=== PATIENT | male | born 1960 | race Hispanic/Latino ===

== ENCOUNTER 2020-04-12 11:03 | Emergency (ER) | payer OTHER, SELFPAY ==
--- NOTE | 2020-04-12 12:25 | RAD REPORT ---
EXAM DESCRIPTION: RAD - Knee Left 3 View - 04/12/2020 12:14 pm CLINICAL HISTORY: Left knee pain FINDINGS: No fracture or dislocation is seen. Mild narrowing involves medial and lateral compartments. Moderate narrowing involves the patella femo ral compartment with osteophytes. Chondrocalcinosis is present. Moderate joint effusion is suspected. . A small exostosis extends off of the proximal fibula. The bones are osteoporotic
--- NOTE | 2020-04-12 12:37 | EDPHYS ---
Physician Documentation [facility] Name: Luis Banda Age: 59 yrs Sex: Male : 1960 Arrival Date: 04/12/2020 Time: 11:05 Bed 16 Private MD: ED Physician Neeraj Brown HPI: 04/12 11:49 This 59 yrs old Male presents to ER via Wheelchair with complaints of Knee kb Pain. 11:49 The patient presents with decreased range of motion, an injury, pain, swelling, kb tenderness. The complaints affect the left knee. Modifying factors: The symptoms are alleviated by nothing. the symptoms are aggravated by weight bearing. The patient has not experienced similar symptoms in the past. The patient has not recently seen a physician. 11:49 Context: The problem was sustained at home, resulted from the patient falling, while kb walking, the patient can partially bear weight, uses crutches. Onset: The symptoms/episode began/occurred 3 day(s) ago. Associated signs and symptoms: Pertinent positives: swelling, Pertinent negatives calf tenderness, fever, nausea, numbness, rash, tingling, vomiting, warmth, weakness. Treatment prior to arrival includes: no previous treatment. Severity of symptoms: At their worst the symptoms were moderate, in the emergency department the symptoms are unchanged. Pt reports he fell onto left knee 3 days ago. Unable to bear weight since then. Historical: - Allergies: 11:15 No Known Allergies; aa5 - Home Meds: 11:15 None [Active]; aa5 - PMHx: 11:15 None; aa5 - PSHx: 11:15 Left foot; aa5 - Immunization history:: Adult Immunizations unknown. - Social history:: Smoking status: Patient reports the use of cigarette tobacco products, smokes one-half pack cigarettes per day. ROS: 11:47 Constitutional: Negative for fever, chills, and weight loss, Cardiovascular: Negative kb for chest pain, palpitations, and edema, Respiratory: Negative for shortness of breath, cough, wheezing, and pleuritic chest pain, Abdomen/GI: Negative for abdominal pain, nausea, vomiting, diarrhea, and constipation, Skin: Negative for injury, rash, and discoloration, Neuro: Negative for headache, weakness, numbness, tingling, and seizure. 11:47 MS/extremity: Positive for pain, swelling, tenderness, of the left knee. Exam: 11:47 Constitutional: This is a well developed, well nourished patient who is awake, alert, kb and in no acute distress. Head/Face: Normocephalic, atraumatic. Chest/axilla: Normal chest wall appearance and motion. Nontender with no deformity. No lesions are appreciated. Cardiovascular: Regular rate and rhythm with a normal S1 and S2. No gallops, murmurs, or rubs. Normal PMI, no JVD. No pulse deficits. Respiratory: Lungs have equal breath sounds bilaterally, clear to auscultation and percussion. No rales, rhonchi or wheezes noted. No increased work of breathing, no retractions or nasal flaring. Abdomen/GI: Soft, non-tender, with normal bowel sounds. No distension or tympany. No guarding or rebound. No evidence of tenderness throughout. Skin: Warm, dry with normal turgor. Normal color with no rashes, no lesions, and no evidence of cellulitis. Neuro: Awake and alert, GCS 15, oriented to person, place, time, and situation. Cranial nerves II-XII grossly intact. Motor strength 5/5 in all extremities. Sensory grossly intact. Cerebellar exam normal. Normal gait. 11:47 Musculoskeletal/extremity: Extremities: grossly normal except: noted in the left knee: decreased ROM, pain, swelling, tenderness, ROM: limited active range of motion due to pain, in the left knee, Circulation is intact in all extremities. Sensation intact. Weight bearing: can bear weight with assistance only, uses crutches. Vital Signs: 11:14 BP 144 / 84; Pulse 72; Resp 16 S; Temp 98.9(O); Pulse Ox 99% on R/A; Weight 72.57 kg aa5 (R); Height 5 ft. 5 in. (165.10 cm) (R); Pain 0/10; 12:14 BP 129 / 99; Pulse 61; Resp 16 S; Pulse Ox 100% on R/A; ca1 12:52 BP 131 / 71; Pulse 62; Resp 16 S; Pulse Ox 100% on R/A; ca1 11:14 Body Mass Index 26.63 (72.57 kg, 165.10 cm) aa5 MDM: 11:19 Patient medically screened. kb 11:47 Data reviewed: vital signs, nurses notes. Data interpreted: Pulse oximetry: on room air kb is 99 %. Interpretation: normal. 12:36 Counseling: I had a detailed discussion with the patient and/or guardian regarding: the kb historical points, exam findings, and any diagnostic results supporting the discharge/admit diagnosis, radiology results, the need for outpatient follow up, a orthopedic surgeon, to return to the emergency department if symptoms worsen or persist or if there are any questions or concerns that arise at home. 04/12 11:24 Order name: Knee Left 3 View XRAY; Complete Time: 12:32 kb Administered Medications: No medications were administered Disposition: 04/12/20 12:36 Discharged to Home. Impression: Effusion, left knee, Pain in left knee. - Condition is Stable. - Discharge Instructions: Knee Effusion, [id number], Knee Pain, [id number]. - Prescriptions for Ibuprofen 800 mg Oral Tablet - take 1 tablet by ORAL route every 8 hours As needed take with food; 30 tablet. - Medication Reconciliation Form, Thank You Letter, Antibiotic Education, Prescription Opioid Use form. - Follow up: Emergency Department; When: As needed; Reason: Worsening of condition. Follow up: Private Physician; When: 2 - 3 days; Reason: Recheck today's complaints, Continuance of care, Re-evaluation by your physician. Addendum: 04/13/2020 14:38 Co-signature as Attending Physician, Neeraj Brown MD I agree with the assessment and k dr plan of care. Signatures: Dispatcher [employer] EDHI Odilia De Leon, EQUIPMENT VALIDATION SPECIALIST-C EQUIPMENT VALIDATION SPECIALIST-Ckb Neeraj Brown MD MD [facility] Sejal Beard, RN RN aa5 Doretha Hollingsworth RN RN ca1 Corrections: (The following items were deleted from the chart) 04/12 12:53 12:36 04/12/2020 12:36 Discharged to Home. Impression: Effusion, left knee; Pain in ca1 left knee. Condition is Stable. Forms are Medication Reconciliation Form, Thank You Letter, Antibiotic Education, Prescription Opioid Use. Follow up: Emergency Department; When: As needed; Reason: Worsening of condition. Follow up: Private Physician; When: 2 - 3 days; Reason: Recheck today's complaints, Continuance of care, Re-evaluation by your physician. kb
--- NOTE | 2020-04-12 12:37 | ER ---
Nurse's Notes [facility] Name: Luis Banda Age: 59 yrs Sex: Male : 1960 Arrival Date: 04/12/2020 Time: 11:05 Bed 16 Private MD: Diagnosis: Effusion, left knee;Pain in left knee Presentation: 04/12 11:14 Chief complaint: Patient states: left knee pain after falling on Thursday. Pt reports he aa5 is unable to bear weight. 11:14 Method Of Arrival: Wheelchair aa5 11:14 Coronavirus screen: Client denies travel out of the [place] in the last 14 days. At this aa5 time, the client does not indicate any symptoms associated with coronavirus-19. Ebola Screen: Patient negative for fever greater than or equal to 101.5 degrees Fahrenheit, and additional compatible Ebola Virus Disease symptoms. Initial Sepsis Screen: Does the patient meet any 2 criteria? No. Patient's initial sepsis screen is negative. Does the patient have a suspected source of infection? No. Patient's initial sepsis screen is negative. Risk Assessment: Do you want to hurt yourself or someone else? Patient reports no desire to harm self or others. Onset of symptoms was March 2020. 11:14 Acuity: SUBHA 4 aa5 Historical: - Allergies: 11:15 No Known Allergies; aa5 - Home Meds: 11:15 None [Active]; aa5 - PMHx: 11:15 None; aa5 - PSHx: 11:15 Left foot; aa5 - Immunization history:: Adult Immunizations unknown. - Social history:: Smoking status: Patient reports the use of cigarette tobacco products, smokes one-half pack cigarettes per day. Screenin:31 Abuse screen: Denies threats or abuse. Denies injuries from another. Nutritional ca1 screening: No deficits noted. Tuberculosis screening: No symptoms or risk factors identified. Fall Risk None identified. Assessment: 11:31 Reassessment:. General: Appears in no apparent distress. comfortable, Behavior is calm, ca1 cooperative, appropriate for age. Pain: Complains of pain in left knee Pain currently is 8 out of 10 on a pain scale. Pain began 2-3 days ago. Aggravated by weight bearing. Neuro: Level of Consciousness is awake, alert, obeys commands, Oriented to person, place, time, situation. Derm: Skin is intact, is healthy with good turgor, Skin is pink, warm \T\ dry. Musculoskeletal: Circulation, motion, and sensation intact. Capillary refill < 3 seconds. 12:14 Reassessment: Patient appears in no apparent distress at this time. Patient and/or ca1 family updated on plan of care and expected duration. Pain level reassessed. Patient is alert, oriented x 3, equal unlabored respirations, skin warm/dry/pink. 12:52 Reassessment: Patient appears in no apparent distress at this time. Patient is alert, ca1 oriented x 3, equal unlabored respirations, skin warm/dry/pink. Vital Signs: 11:14 BP 144 / 84; Pulse 72; Resp 16 S; Temp 98.9(O); Pulse Ox 99% on R/A; Weight 72.57 kg aa5 (R); Height 5 ft. 5 in. (165.10 cm) (R); Pain 0/10; 12:14 BP 129 / 99; Pulse 61; Resp 16 S; Pulse Ox 100% on R/A; ca1 12:52 BP 131 / 71; Pulse 62; Resp 16 S; Pulse Ox 100% on R/A; ca1 11:14 Body Mass Index 26.63 (72.57 kg, 165.10 cm) aa5 ED Course: 11:05 Patient arrived in ED. ag5 11:14 Arm band placed on. aa5 11:19 Odilia De Leon FNP-C is [facility]. kb 11:19 Neeraj Brown MD is Attending Physician. kb 11:30 Doretha Hollingsworth, JAZMINE is Primary Nurse. ca1 11:31 Patient has correct armband on for positive identification. Bed in low position. Call ca1 light in reach. Side rails up X 1. Pulse ox on. NIBP on. 11:31 No provider procedures requiring assistance completed. Patient did not have IV access ca1 during this emergency room visit. 11:34 Triage completed. aa5 12:15 Knee Left 3 View XRAY In Process Unspecified. EDMS Administered Medications: No medications were administered Outcome: 12:36 Discharge ordered by . kb 12:53 Discharged to home via wheelchair, with significant other. ca1 12:53 Condition: stable 12:53 Discharge instructions given to patient, Instructed on discharge instructions, follow up and referral plans. medication usage, Demonstrated understanding of instructions, follow-up care, medications, Prescriptions given X 1. 12:53 Patient left the ED. ca1 Signatures: Dispatcher [employer] Odilia Carvalho, REY EASON-Sejal Pichardo, RN RN aa5 Doretha Hollingsworth RN RN ca1 Lesley Lee ag5
[2020-04-12 13:11] VITALS: TEMP 98.9
[2020-04-12 13:20] VITALS: O2SAT 100
[2020-04-12 13:21] VITALS: BP 131/71
== END 2020-04-12 12:53 | disposition home or self-care (01) ==
LOC: ER 11:03
DX: M25.462 Effusion, left knee (principal); W19.XXXA Unspecified fall, initial encounter; Y93.01 Activity, walking, marching and hiking; Y92.009 Unspecified place in unspecified non-institutional (private) residence as the place of occurrence of the external cause; F17.210 Nicotine dependence, cigarettes, uncomplicated
CPT/HCPCS: 99283

== ENCOUNTER 2024-05-23 11:30 | Inpatient (IN) | payer OTHER, SELFPAY ==
--- OUTSIDE RECORDS SUMMARY | 2024-05-23 11:33 | XMS REPORT | Continuity of Care Document ---
Author Name Unknown Address [address] [facility] [address] [place] [address] [facility] [address] [facility] [place] [address] Care Team Providers Care Title Assistant Name Role Phone Unavailable Unavailable Unavailable Encounters Start Date/Time End Date/Time Encounter Type Admission Type Attending Clinicians Care Facility Care Department Encounter ID Source 2024-05-23 10:24:44 2024-05-23 10:24:44 Outpatient [facility] [id number] Rosas Yeboah 2023-08-24 08:02:12 2023-08-24 08:02:12 Outpatient [facility] [id number] Rosas Yeboah Results Test Description Test Time Test Comments Results Result Co mments Source
[2024-05-23 12:29] LABS: Absolute Basophils 0.1 K/uL (0-0.5); Absolute Eosinophils 0.3 K/uL (0-0.5); Absolute Lymphocytes (CBC) 2.9 K/uL (0.7-4.9); Absolute Monocytes 0.4 K/uL (0.1-1.3); Absolute Neutrophil 5.5 K/uL (1.8-8.0); Basophils % 1.1 % (0-1.3); Eosinophils % 3.7 % (0-4.4); Hematocrit 39.9 % (39.6-49.0); Hemoglobin 13.4 g/dL (13.6-17.9); MCH 30.7 pg (27.0-35.0); MCHC 33.6 g/dL (32.0-36.0); MCV 91.3 fL (80-100); MPV 9.3 fL (7.6-11.3); Monocytes % 4.7 % (3.3-12.3); Neutrophils % 59.5 % (41.7-73.7); Platelets 193 thou/uL (152-406); RBC Red Blood Cell Count 4.37 M/uL (4.33-5.43); Red Cell Distribution Width 14.1 % (12.1-15.2)
--- NOTE | 2024-05-23 14:08 | RAD REPORT ---
EXAM: CT Head Brain Wo Cont HISTORY: L sided numbness COMPARISON: None TECHNIQUE: Multiple contiguous axial images were obtained for a CT of the brain without contrast. Sag ittal and coronal reformats were performed. One or more of the following dose reduction techniques were used: Automated exposure control, adjus tment of the mA and kV according to patient size, and iterative reconstruction. Unless otherwise specified, incidental findings do not require dedicated imaging follow-up. FINDINGS: No evidence of hydrocephalus, intracranial hemorrhage, or extra-axial fluid collection. Encephalomalacia along the left frontal parasagittal region, suggesting sequelae of remote trauma or ischemia. Small focus of encephalomalacia along the left inferior cerebellar hemispheres as well. The brain is otherwise normal in morphology. The calvarium is intact. The visualized paranasal sinuses and mastoid air cells are essentially clear . IMPRESSION: No evidence of acute intracranial abnormality. Left frontal parasagittal and left inferior cerebellar regions of encephalomalacia, may relate to seq uelae of remote ischemia.
--- NOTE | 2024-05-23 14:12 | RAD REPORT ---
EXAMINATION: CT Neck Angio CLINICAL INDICATION: Male, 63 years old. [facility] MA[facility] L sided numbness Bed Name: [id number] TECHNIQUE: Axial CT images were obtained from the aortic arch to the skull base after intravenous con trast utilizing angiographic protocol. Multiplanar reformats, as well as 3D post-processing (maximum intensity projection images, volume rendered images and/or shaded surface rendered images) w ere generated and reviewed. One or more of the following dose reduction techniques were used: Automated exposure control, adjustment of the mA and/or kV according to patient size, and/or iterativ e reconstruction. Unless otherwise specified, incidental findings do not require dedicated imaging follow-up. COMPARISON: No prior exam. FINDINGS: AORTA: The imaged aortic arch is normal. Three-vessel arch with fusiform dilation of the proximal lef t subclavian artery measuring 1.9 cm in caliber. CCA: No artifact The common carotid arteries are patent and normal in caliber. ICA/ECA: Bilateral internal and external carotid arteries are patent. Mild predominantly noncalcified right more than left proximal ICA plaque with some luminal irregularity, without significant stenosis. VERTEBRAL: The right cervical vertebral artery is patent to the skull base. Left vertebral artery is not opacified starting at its origin. Sluggish opacification of the distal V3 segment, which may be related to retrograde flow. SOFT TISSUE: No significant neck soft tissue abnormalities. The visualized lung apices are clear. 3D images confirm these findings. 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 Mild atherosclerotic changes otherwise. The carotid and right vertebral cervical arteries are patent. NASCET criteria used to quantify ICA stenosis, with the following grading scheme: Mild 0-49% stenosis Moderate 50-69% stenosis Severe 70-99% stenosis Reference: [place] Symptomatic Carotid Endarterectomy Trial Collaborators; Conner CASTILLOM, Tameka DW, Gene RB, et al. Beneficial effect of carotid endarterectomy in symptomatic patients with high-grade carotid stenosis. N Engl J Med. 1990 15;325(7):445-53.
--- NOTE | 2024-05-23 14:18 | RAD REPORT ---
EXAMINATION: CTA HEAD CLINICAL INDICATION: Male, 63 years old. NUMBNESS TECHNIQUE: Axial CT images were obtained through the head after intravenous contrast utilizing angiog raphic protocol with 3D post-processing (maximum intensity projection images, volume rendered images and/or shaded surface rendered images). One or more of the following dose reduction technique s were used: Automated exposure control, adjustment of the mA and/or kV according to patient size, and/or iterative reconstruction. Unless otherwise specified, incidental findings do not require dedic ated imaging follow-up. COMPARISON: Noncontrast head CT of the same day FINDINGS: ICA: The petrous, cavernous, and supraclinoid segments of the bilateral internal carotid arteries are normal. ABDELRAHMAN: Anterior cerebral arteries are normal bilaterally. The anterior communicating artery is patent. MCA: Middle cerebral arteries are patent bilaterally, with multifocal mild narrowing along the right more than left MCA branches. OPERATING ROOM TECHNOLOGIST: Posterior cerebral arteries are normal bilaterally. Vertebrobasilar: The vertebral arteries are patent, with sluggish flow along the intradural left vert ebral artery which is diminutive in caliber. The basilar artery is patent with multifocal mild narrowing. The bilateral posterior communicating arteries are however patent. 3D images confirm these findings. IMPRESSION: Multifocal mild narrowing along the basilar artery and right more than left MCA branches as above. No evidence of hemodynamically significant stenosis or large vessel occlusion.
--- NOTE | 2024-05-23 14:49 | ER ---
Nurse's Notes [facility] Name: Luis Banda Age: 63 yrs Sex: Male : 1960 Arrival Date: 05/23/2024 Time: 11:30 Bed 25 Private MD: Diagnosis: Subacute Stroke Presentation: 05/23 11:51 Chief complaint: Patient states: left sided numbness X 1 month, was sent by [facility] for evaluation , was previously seen in [place] for possible stroke , was prescribed plavix and aspirin , has persistent left hand numbness. Coronavirus screen: At this time, the client does not indicate any symptoms associated with coronavirus-19. Ebola Screen: No symptoms or risks identified at this time. Initial Sepsis Screen: Does the patient meet any 2 criteria? No. Patient's initial sepsis screen is negative. Does the patient have a suspected source of infection? No. Patient's initial sepsis screen is negative. Risk Assessment: Do you want to hurt yourself or someone else? Patient reports no desire to harm self or others. 11:51 Acuity: SUBHA 3 iw 11:51 Method Of Arrival: Ambulatory iw 11:54 Onset of symptoms was April 23, 2024. iw Historical: - Allergies: 11:55 No Known Allergies; iw - PMHx: 11:55 Cerebrovascular accident; iw - PSHx: 11:55 None; iw - Immunization history:: Adult Immunizations unknown. - Infectious Disease History:: Denies. - Social history:: Smoking status: Patient denies any tobacco usage or history of. Screenin:20 [facility] ED Fall Risk Assessment (Adult) History of falling in the last 3 months, me1 including since admission No falls in past 3 months (0 pts) Confusion or Disorientation No (0 pts) Intoxicated or Sedated No (0 pts) Impaired Gait No (0 pts) Mobility Assist Device Used No (0 pt) Altered Elimination No (0 pt) Score/Fall Risk Level 0 - 2 = Low Risk Maintained a safe environment, Provided non-skid footwear, Hourly rounding (assess needs \T\ fall precautionary measures) done. Abuse screen: Denies threats or abuse. Nutritional screening: No deficits noted. Tuberculosis screening: No symptoms or risk factors identified. 13:00 Lucien Swallow Protocol Exclusion Criteria: Unable to remain alert for testing: No NPO me1 for medical/surgical reason by provider order No Head-of-bed restricted <30 degrees Brief Cognitive Screen What is your name? Normal, Where are you right now? Normal, What year is it? Normal. Oral Mechanism Examination Facial Symmetry: Normal, Motion: Normal, Lip Closure: Normal, 3 oz Water Swallow Challenge: Pt able to drink all water without stopping, coughing, choking or throat clearing: Yes Result: PASS MD Notified: Cecil Peck MD. Assessment: 12:20 General: Appears in no apparent distress. comfortable, well groomed, well developed, me1 well nourished, Behavior is calm, cooperative, appropriate for age, Reports left sided numbness X 1 month, was sent by [facility] for evaluation , was previously seen in [place] for possible stroke , was prescribed plavix and aspirin , has persistent left hand numbness. Pain: Denies pain. Neuro: Level of Consciousness is awake, alert, obeys commands, Oriented to person, place, time, situation, Appropriate for age. Neuro: Reports numbness in left hand. Cardiovascular: Patient's skin is warm and dry. Respiratory: Airway is patent Respiratory effort is even, unlabored, Respiratory pattern is regular, symmetrical. GI: No signs and/or symptoms were reported involving the gastrointestinal system. : No signs and/or symptoms were reported regarding the genitourinary system. EENT: No signs and/or symptoms were reported regarding the EENT system. Derm: Skin is intact, is healthy with good turgor, Skin is pink, warm \T\ dry. Musculoskeletal: Range of motion: intact in all extremities, Reports numbness in left hand. 05/24 13:09 Reassessment: Report faxed to 4th floor, receipt confirmed with [employer]. me1 Vital Signs: 05/23 11:51 BP 125 / 72; Pulse 57; Resp 16; Temp 97.2; Pulse Ox 99% on R/A; iw 13:00 BP 127 / 77; Pulse 51; Resp 17; Pulse Ox 97% on R/A; me1 14:00 BP 119 / 82; Pulse 53; Resp 18; Pulse Ox 98% on R/A; me1 15:00 BP 128 / 84; Pulse 53; Resp 19; Pulse Ox 99% ; me1 16:00 BP 134 / 88; Pulse 58; Resp 20; Pulse Ox 99% ; me1 17:00 BP 136 / 66; Pulse 52; Resp 19; Temp 98.2; Pulse Ox 98% ; me1 18:00 BP 126 / 69; Pulse 51; Resp 18; Pulse Ox 99% ; me1 NIH Stroke Scale Scores: 13:00 NIHSS Score: 0 me1 ED Course: 11:33 Patient arrived in ED. mg5 11:38 David Mcmanus DO is Attending Physician. ms3 11:47 Attending Physician role handed off by David Mcmanus DO ec2 11:47 Cecil Peck MD is Attending Physician. ec2 11:53 Triage completed. iw 12:20 No provider procedures requiring assistance completed. me1 12:20 Patient has correct armband on for positive identification. Bed in low position. Call me1 light in reach. Side rails up X2. Provided Education on: POC. Verbalized understanding.. Client placed on continuous cardiac and pulse oximetry monitoring. NIBP monitoring applied. manager monitoring on. Pulse ox on. NIBP on. 12:20 Arm band placed on Patient placed in an exam room. me1 12:22 Initial lab(s) drawn, by me, sent to lab. Inserted saline lock: 22 gauge in right iw forearm, using aseptic technique. Blood collected. Flushed with 10 mL NS. 12:37 Marcelle Hathaway, RN is Primary Nurse. me1 12:53 EKG done, by ED staff, reviewed by Cecil Peck MD. me1 13:11 CT Head Brain wo Cont In Process Unspecified. EDMS 13:12 CT Neck Angio In Process Unspecified. EDMS 13:12 Head angio In Process Unspecified. EDMS 14:48 Mayur Dawson is Hospitalizing Provider. ec2 15:27 Von Kauffman is Hospitalizing Provider. ec2 15:32 Mayur Dawson is Hospitalizing Provider. ec2 19:09 Patient admitted, IV remains in place. me1 19:28 Notified the Hospitalist of a critical lab result(s), troponin 177.[address] Pappas. me1 Administered Medications: No medications were administered Medication: 12:20 VIS not applicable for this client. me1 Outcome: 14:48 Decision to Hospitalize by Provider. ec2 15:27 Decision to Hospitalize by Provider. ec2 21:00 Admitted to ER Hold. Please see Kaseya for further documentation. me1 21:00 Condition: stable 21:00 Instructed on the need for admit, 1203 13:38 Admitted to Tele accompanied by tech, via wheelchair, room 407, with chart, Report me1 called to faxed, receipt confirmed with [employer] Condition: stable Instructed on the need for admit, 13:38 Patient left the ED. me1 NIH Stroke Scale - NIH Stroke Score Date: 05/23/2024 Time: 13:00 Total Score = 0 10. Dysarthria (speech clarity - read or repeat words) - 0(Normal) 11. Extinction and Inattention (visual/tactile/auditory/spatial/personal) - 0(No abnormality) 1a. Level of Consciousness (LOC) - 0(Alert) 1b. Level of Consciousness (LOC) (Month \T\ Age) - 0(Both) 1c. LOC Commands (Open \T\ Closes Eyes/Performance Solutions Specialist) - 0(Both) 2. Best Gaze (Lateral Gaze Paresis) - 0(Normal) 3. Visual Field Loss - 0(No visual loss) 4. Facial Palsy - 0(Normal) 5a. Left Arm: Motor (10-second hold) - 0(No drift) 5b. Right Arm: Motor (10-second hold) - 0(No drift) 6a. Left Leg: Motor (5-second hold - always test supine) - 0(No drift) 6b. Right Leg: Motor (5-second hold - always test supine) - 0(No drift) 7. Limb Ataxia (finger/nose \T\ heel/hanson - test with eyes open) - 0(Absent) 8. Sensory Loss (pinprick arms/legs/face) - 0(Normal) 9. Best Language: Aphasia (description/naming/reading) - 0(No aphasia) Initials: me1 Signatures: Dispatcher [employer] Keshia Delacruz RN RN iw David Mcmanus DO DO ms3 Marcelle Hathaway RN RN me1 Calista Neri mg5 Cecil Peck MD MD ec2 Corrections: (The following items were deleted from the chart) 05/23 11:54 11:51 Chief complaint: Patient states: left sided numbness X 1 month, was sent iw by [facility] for evaluation , was previously seen in [place] for possible stroke iw 11:55 11:55 PMHx: None; iw iw 13:20 11:51 Chief complaint: Patient states: left sided numbness X 1 month, was sent me1 by [facility] for evaluation , was previously seen in [place] for possible stroke , was prescribed plavix and aspirin , has persistent left hand numbness iw
--- NOTE | 2024-05-23 14:49 | EDPHYS ---
Physician Documentation [facility] Name: Luis Banda Age: 63 yrs Sex: Male : 1960 Arrival Date: 05/23/2024 Time: 11:30 Bed 25 Private MD: ED Physician Cecil Peck HPI: 05/23 11:56 This 63 yrs old Male presents to ER via Ambulatory with complaints of SIDE ec2 NUMBNESS. 11:56 Patient arrives today for evaluation of left-sided numbness. Patient reports that ec2 approximately 1 month ago [place] and subsequently is still having left hand and left foot numbness. Patient reports no falls injuries or trauma. Was started on aspirin as well as Plavix. Patient reports that he was seeking care today and was told to come to the ED for further evaluation.. Historical: - Allergies: 11:55 No Known Allergies; iw - PMHx: 11:55 Cerebrovascular accident; iw - PSHx: 11:55 None; iw - Immunization history:: Adult Immunizations unknown. - Infectious Disease History:: Denies. - Social history:: Smoking status: Patient denies any tobacco usage or history of. ROS: 11:56 Constitutional: as per hpi ec2 Exam: 11:56 Constitutional: GEN: NAD Head: atraumatic Eyes: EOMI Ears: External ears are ec2 normal. CV: regular rate LUNGS: no respiratory distress ABD: non-distended SKIN: no evidence of rashes MSK: no evidence of trauma, cranial nerves II through XII intact, strength intact throughout all extremities diminished sensation in the left hand and left lower extremity. Vital Signs: 11:51 BP 125 / 72; Pulse 57; Resp 16; Temp 97.2; Pulse Ox 99% on R/A; iw 13:00 BP 127 / 77; Pulse 51; Resp 17; Pulse Ox 97% on R/A; me1 14:00 BP 119 / 82; Pulse 53; Resp 18; Pulse Ox 98% on R/A; me1 15:00 BP 128 / 84; Pulse 53; Resp 19; Pulse Ox 99% ; me1 16:00 BP 134 / 88; Pulse 58; Resp 20; Pulse Ox 99% ; me1 17:00 BP 136 / 66; Pulse 52; Resp 19; Temp 98.2; Pulse Ox 98% ; me1 18:00 BP 126 / 69; Pulse 51; Resp 18; Pulse Ox 99% ; me1 NIH Stroke Scale Scores: 13:00 NIHSS Score: 0 ok1 MDM: 11:48 Medical Screening Exam initiated ec2 11:56 Data reviewed: vital signs, nurses notes. ED course: Patient arrives today for ec2 evaluation of left hand and left foot numbness. Examination revealing for neuro findings as above. Will obtain lab work as well as CT imaging. Differential diagnosis includes arrhythmia, electrolyte disturbances, previous stroke. 13:01 ED course: EKG independently reviewed and interpreted by me, shows sinus rhythm, rate ec2 of 48, no acute ST segment elevations, intervals are nonactionable. \E\. 14:47 ED course: CT imaging shows chronic changes along with likely subacute infarct, will ec2 admit the patient for further stroke workup, discussed with hospitalist will restart the patient for admission.. 05/23 11:55 Order name: Basic Metabolic Panel; Complete Time: 12:43 ec2 05/23 11:55 Order name: CBC with Diff; Complete Time: 12:43 ec2 05/23 16:52 Order name: Basic Metabolic Panel EDMS 05/23 16:52 Order name: Basic Metabolic Panel EDMS 05/23 16:52 Order name: CBC with Automated Diff EDMS 05/23 16:52 Order name: CBC with Automated Diff EDMS 05/23 16:52 Order name: Lipid Profile EDMS 05/23 16:52 Order name: Lipid Profile EDMS 05/23 16:52 Order name: Magnesium EDMS 05/23 16:52 Order name: Magnesium EDMS 05/23 16:52 Order name: Phosphorus EDMS 05/23 16:52 Order name: Phosphorus EDMS 05/23 16:52 Order name: Thyroid Stimulating Hormone EDMS 05/23 16:52 Order name: Thyroid Stimulating Hormone EDMS 05/23 16:52 Order name: Troponin High Sensitivity EDMS 05/23 16:52 Order name: Troponin High Sensitivity EDMS 05/23 16:52 Order name: Troponin High Sensitivity EDMS 05/24 05:33 Order name: Troponin High Sensitivity EDMS 05/23 11:55 Order name: CT Head Brain wo Cont; Complete Time: 14:09 ec2 05/23 11:55 Order name: CT Neck Angio; Complete Time: 14:27 ec2 05/23 12:29 Order name: Head angio; Complete Time: 14:27 EDMS 05/23 16:52 Order name: Echo with Doppler EDMS 05/23 16:52 Order name: Echo with Doppler EDMS 05/24 08:01 Order name: CT EDMS 05/23 11:55 Order name: EKG; Complete Time: 11:56 ec2 05/23 16:52 Order name: IRF Screen EDMS 05/23 16:52 Order name: Physical Therapy Consult EDMS 05/23 16:52 Order name: Speech Therapy Consult EDMS 05/23 16:52 Order name: EKG Electrocardiogram EDMS 05/23 16:52 Order name: EKG Electrocardiogram EDMS 05/23 11:55 Order name: Cardiac monitoring; Complete Time: 12:53 ec2 05/23 11:55 Order name: EKG - Nurse/Tech; Complete Time: 12:53 ec2 05/23 11:55 Order name: IV Saline Lock; Complete Time: 12:25 ec2 05/23 11:55 Order name: Labs collected and sent; Complete Time: 12:25 ec2 05/23 11:55 Order name: O2 Per Protocol; Complete Time: 12:38 ec2 05/23 11:55 Order name: O2 Sat Monitoring; Complete Time: 12:38 ec2 Administered Medications: No medications were administered Disposition Summary: 05/23/24 15:27 Hospitalization Ordered Notes: Hospitalization Status: Inpatient Admission(05/23/24 15:27) ec2 Condition: Stable(05/23/24 15:27) ec2 Problem: an ongoing problem(05/23/24 15:27) ec2 Symptoms: are unchanged(05/23/24 15:27) ec2 Bed/Room Type: Standard(05/23/24 15:27) ec2 Provider: Mayur Dawson(05/23/24 15:32) ec2 Location: Telemetry/MedSurg (Inpatient)(05/24/24 12:40) bd Room Assignment: 407(05/24/24 12:40) bd Diagnosis - Subacute Stroke ec2 Forms: - Medication Reconciliation Form ec2 - SBAR form ec2 - Leadership Thank You Letter ec2 NIH Stroke Scale - NIH Stroke Score Date: 05/23/2024 Time: 13:00 Total Score = 0 10. Dysarthria (speech clarity - read or repeat words) - 0(Normal) 11. Extinction and Inattention (visual/tactile/auditory/spatial/personal) - 0(No abnormality) 1a. Level of Consciousness (LOC) - 0(Alert) 1b. Level of Consciousness (LOC) (Month \T\ Age) - 0(Both) 1c. LOC Commands (Open \T\ Closes Eyes/Web Marketing Strategist) - 0(Both) 2. Best Gaze (Lateral Gaze Paresis) - 0(Normal) 3. Visual Field Loss - 0(No visual loss) 4. Facial Palsy - 0(Normal) 5a. Left Arm: Motor (10-second hold) - 0(No drift) 5b. Right Arm: Motor (10-second hold) - 0(No drift) 6a. Left Leg: Motor (5-second hold - always test supine) - 0(No drift) 6b. Right Leg: Motor (5-second hold - always test supine) - 0(No drift) 7. Limb Ataxia (finger/nose \T\ heel/hanson - test with eyes open) - 0(Absent) 8. Sensory Loss (pinprick arms/legs/face) - 0(Normal) 9. Best Language: Aphasia (description/naming/reading) - 0(No aphasia) Initials: me1 Signatures: Dispatcher [employer] EDMS Mickie Franks Irene, RN RN Angie Gonzalez rv1 Elizabeth Leonard bc6 Marcelle Hathaway RN RN me1 Cecil Peck MD MD ec2 Corrections: (The following items were deleted from the chart) 11:55 11:55 PMHx: None; [facility] 12:58 11:56 Head Angio+CT.RAD.BRZ ordered. EDMS EDMS 15: 14:48 Inpatient Admission ec2 ec2 15: 14:48 Mayur Dawson ec2 ec2 15: 14:48 Telemetry/MedSurg (Inpatient) ec2 ec2 15:26 14:48 Stable ec2 ec2 15: 14:48 an ongoing problem ec2 ec2 15:26 14:48 are unchanged ec2 ec2 15:26 14:48 Standard ec2 ec2 15:26 14:48 ec2 ec2 15:26 14:48 Subacute Stroke ec2 ec2 15:32 15:27 [place], [place] ec2 ec2 16:57 15:27 ec2 bc6 17:02 16:57 407 bc6 bc6 19:03 17:02 bc6 rv1 19:14 19:03 404 rv1 iw 20:08 15:27 Telemetry/MedSurg (Inpatient) ec2 rv1 20:08 19:14 iw rv1 05/24 12:40 12/02 20:08 [facility] ER HOLD rv1 bd 05/24 12:40 12/02 20:08 ERHOLD- rv1 bd
[2024-05-23] MEDS ORDERED: ONDANSETRON 4 MG/2 ML VIAL IV PRN (16:46)
[2024-05-23] MEDS: NA CHLORIDE 0.9% 1,000 ML IV SCH (17:00)
--- NOTE | 2024-05-23 19:21 | P.HP ---
Certification for Inpatient Patient admitted to: Observation With expected LOS: <2 Midnights Practitioner: I am a practitioner with admitting privileges, knowledge of patient current condition, hospital course, and medical plan of care. Services: Services provided to patient in accordance with Admission requirements found in Title 42 Section 412.3 of the Code of Federal Regulations Patient History Date of Service: 05/23/24 Reason for admission: Left upper extremity and lower extremity numbness History of Present Illness: 63-year-old Pakistani-speaking gentleman with no known past medical history was sent to the emergency department from [facility] due to left upper extremity and left lower extremity numbness. Patient states that his symptoms started about 1 month ago and initially had whole left body numbness including his face. Symptoms has improved and now has residual numbness in only the left extremities. He states that he went to a clinic in [place] and was started on aspirin and Plavix. Patient denies any limb weakness, no difficulty with ambulation, no speech problem or swallowing problem. Stroke protocol called in the ED, head CT showed Left frontal parasagittal and left inferior cerebellar regions of encephalomalacia, may relate to sequelae of remote ischemia. EKG showed marked bradycardia and nonspecific ST-T changes. Patient hospitalized for further stroke workup. Allergies No Known Allergies Allergy (Unverified 05/23/24 18:03) - Past Medical/Surgical History -: Left-sided numbness Past Surgical History: Patient denies surgical history - Family History Family History: Reviewed- Non-Contributory - Social History Smoking Status: Current every day smoker Alcohol use: No CD- Drugs: No Place of Residence: Home Review of Systems Other: Patient denied any blurry vision, no reported seizures, he denies any headache. Patient denies any chest pain or shortness of breath. He denies any fever. Except as documented, all other systems reviewed and negative. Physical Examination - Physical Exam General: Alert, In no apparent distress, Oriented x3 HEENT: Atraumatic, Normocephalic, PERRLA, Mucous membr. moist/pink, EOMI, Sclerae nonicteric Neck: Supple, 2+ carotid pulse no bruit, JVD not distended Respiratory: Clear to auscultation bilaterally, Normal air movement Cardiovascular: No edema, Regular rate/rhythm, Normal S1 S2, Systolic murmur Capillary refill: <2 Seconds Gastrointestinal: Normal bowel sounds, Soft and benign, Non-distended, W/out hepatosplenomegaly Musculoskeletal: No swelling, No tenderness Integumentary: No rashes, No erythema, No cyanosis Neurological: Normal gait, Normal strength at 5/5 x4 extr, Sensation intact, Cranial nerves 3-12 intact Lymphatics: No axilla or inguinal lymphadenopathy - Studies Laboratory Data (last 24 hrs) 05/23/24 05/23/24 12:20 12:20 WBC 9.20 Hgb 13.4 L Hct 39.9 Plt Count 193 Sodium 140 Potassium 4.0 BUN 16 Creatinine 1.03 Glucose 106 Assessment and Plan - Problems (Diagnosis) (1) CVA (cerebral vascular accident) Current Visit: Yes Status: Acute (2) Subclavian artery aneurysm Current Visit: Yes Status: Acute (3) Abnormal EKG Current Visit: Yes Status: Acute - Plan History of CVA Left Upper extremity and left lower extremity. Place patient under observation on the medical floor. Stroke protocol initiated. Aspirin, Plavix and Lipitor. Check lipid profile Obtain echocardiogram. Neurology consult. Obtain MRI. Speech, physical therapy evaluations. Swallow evaluation. Abnormal EKG Marked bradycardia with T wave inversion, other nonspecific ST abnormalities. Repolarization issues suspected. Trend troponin Obtain echocardiogram. Cardiology consult. Serial EKG. Left subclavian fusiform aneurysm Possible chronic dissection with limited flow in the left vertebral artery. Obtain CTA thorax to further evaluate and compare bilateral subclavian arteries. Patient may need vascular surgery evaluation for stenting pending CTA thorax result. Aggressive antiplatelet therapy. Maintain high systolic BP for cerebral blood flow. DVT prophylaxis: Lovenox Advanced directive: full code - Advance Directives Does patient have a Living Will: No Does patient have a Durable POA for Healthcare: No
[2024-05-23] MEDS: ATORVASTATIN 20 MG TAB PO SCH (21:00)
[2024-05-23] MEDS ORDERED: ATORVASTATIN 40 MG TAB ONE (21:25)
[2024-05-23] MEDS ORDERED: NA CHLORIDE 0.9% 1,000 ML ONE (21:25)
[2024-05-23 21:56] VITALS: BMI 27.4
[2024-05-24 05:05] LABS: Absolute Basophils 0.1 K/uL (0-0.5); Absolute Eosinophils 0.4 K/uL (0-0.5); Absolute Monocytes 0.5 K/uL (0.1-1.3); Absolute Neutrophil 4.2 K/uL (1.8-8.0); Basophils % 0.8 % (0-1.3); Eosinophils % 4.3 % (0-4.4); Hemoglobin 12.8 g/dL (13.6-17.9); Lymphocytes % 36.8 % (15.3-44.8); MCH 30.2 pg (27.0-35.0); MCHC 32.8 g/dL (32.0-36.0); MPV 9.4 fL (7.6-11.3); Monocytes % 6.3 % (3.3-12.3); Neutrophils % 51.8 % (41.7-73.7); Platelets 183 thou/uL (152-406); RBC Red Blood Cell Count 4.24 M/uL (4.33-5.43); Red Cell Distribution Width 14.2 % (12.1-15.2)
[2024-05-24 05:25] LABS: Phosphorus 3.4 mg/dL (2.5-4.9); Thyroid Stimulating Hormone 2.28 uIU/mL (0.358-3.740)
[2024-05-24 05:33] LABS: Troponin High Sensitivity 179.8 pg/mL (<58.9)
--- NOTE | 2024-05-24 07:16 | P.PN ---
Date of Service: 05/24/24 Subjective: reports numbness from left ~wrist to fingertips, and left lower leg. initially had full left side involvement with some left facial droop face symptoms resolved within 2 weeks of onset denies any medical history, however does not typically see a PCP ROS: 10 point ROS as noted above, otherwise negative Physical Exam: GEN: Alert, NAD HEENT: Normal conjunctiva, sclera anicteric, CV: Regular rate and rhythm, no edema, systolic murmur Pulm: Nonlabored respirations on room air, clear bilaterally ABD: soft, nontender, nondistended Neuro: Normal speech, normal affect, left-sided numbness Problem List: Left Upper extremity and left lower extremity numbness secondary to subacute CVA NSTEMI Abnormal EKG Left subclavian fusiform aneurysm Left Upper extremity and left lower extremity numbness secondary to subacute CVA presents with left upper and lower extremity numbness. Denies any limb weakness, no difficulty ambulating, no speech/swallowing problem Symptoms started ~1 month ago. Initially with entire left sided numbness including face, now improved with residual numbness to left extremities Was seen at clinic in [place] and started on aspirin, plavix. CTA head (05/23): Multifocal mild narrowing along the basilar artery and right more than left MCA branches as above. No significant stenosis or large vessel occlusion CT head (05/23): Left frontal parasagittal and left inferior cerebellar regions of encephalomalacia, may relate to sequelae of remote ischemia. 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 continue Aspirin, Plavix and Lipitor. Echo ordered to eval EF / stenosis Dr. Reeder, neuro consulted PT/ST eval eval swallowing NSTEMI Abnormal EKG EKG with marked bradycardia with T wave inversion, other nonspecific ST abnormalities. Repolarization issues suspected. trend troponins, 178 -> 180 Elevated troponins likely secondary to demand ischemia. Echo ordered to eval EF / stenosis Cardiology consulted - recommending stress test tomorrow morning. 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 Fusiform dilatation of the proximal left subclavian artery measuring 2.5 cm. heavily calcified aortic valve. Patient may need vascular surgery evaluation Maintain high systolic BP for cerebral blood flow. Plavix, asa 81 mg VTE: Lovenox Code: Full Dispo: home, ~1-2 days pending neuro/cardiac recs, stress test in AM Time Spent Managing Pts Care (In Minutes): 55
[2024-05-24] MEDS ORDERED: CLOPIDOGREL 75 MG TABLET ONE (07:52)
[2024-05-24] MEDS ORDERED: ENOXAPARIN 40 MG/0.4 ML SQ ONE (07:52)
[2024-05-24] MEDS ORDERED: ASPIRIN EC 81 MG TAB PO ONE (07:52)
--- NOTE | 2024-05-24 08:00 | RAD REPORT ---
EXAM: Angio Aorta For Dissection CLINICAL INDICATION: Male, 63 years Follow up left Subclavian aneurysm TECHNIQUE: CTA of the aorta was obtained including the chest, abdomen and pelvis, with IV contrast, a s per department protocol. Axial, sagittal and coronal reconstructions were obtained. Post-processing was applied at the acquisition scanner with concurrent physician supervision which in cludes 3D reconstructions, MIPs, volume rendered images and/or shaded surface rendering. One or more of the following dose reduction techniques were used: Automated exposure control, adjustment of the mA and/or kV according to the patient size, and/or iterative reconstruction. Unless otherwise specified, incidental findings do not require dedicated imaging follow-up. [id number]. COMPARISON: No prior exam. FINDINGS: Chest: LOWER NECK/CHEST WALL: Visualized thyroid gland and soft tissues are normal. LUNGS AND AIRWAYS: Mild bronchial wall thickening. Normal groundglass opacities in the right middle a nd upper lobe that are nonspecific. No suspicious pulmonary nodules identified. PLEURA: No pleural effusion. No pneumothorax. Hemidiaphragms are normally positioned. MEDIASTINUM AND LYMPH NODES: No mediastinal mass or fluid collection. Normal size mediastinal, hilar, and axillary lymph nodes. THORACIC AORTA: Ascending thoracic aorta aneurysm measuring 4.3 cm. Aortic valve calcifications are p resent. Fusiform aneurysmal dilatation of the left subclavian artery measuring up to 2.5 cm. PULMONARY ARTERIES: Borderline dilated main pulmonary artery HEART: Cardiomegaly. Abdomen/Pelvis LIVER: Normal in size and contour. No focal lesion. GALLBLADDER/BILE DUCTS: Vicarious excretion of contrast. PANCREAS: No mass, ductal dilation, or more-pancreatic fluid. SPLEEN: Normal size. No focal lesion. ADRENALS: Normal; no mass. KIDNEYS AND URETERS: Normal size and contour. No hydronephrosis. GASTROINTESTINAL TRACT: Stomach is non-dilated. Small bowel has normal course and caliber. No colonic wall thickening or pericolonic inflammatory changes. PERITONEUM: No free fluid. LYMPH NODES: No lymphadenopathy. ABDOMINAL AORTA AND OTHER VESSELS: Soft and hard plaque involving the abdominal aorta but no aortic a neurysm. Mild to moderate narrowing of the left common iliac artery. Severe stenosis at the origin of the right and left internal iliac arteries. URINARY BLADDER: Normal contour. REPRODUCTIVE ORGANS: No pathologic process. MUSCULOSKELETAL: Nonaggressive appearing scarring lesion of the right pubic symphysis. Bone island in the right humeral head. No other osseous lesions are identified. No acute fractures. ADDITIONAL FINDINGS: Fat-containing inguinal hernias. IMPRESSION: 1. Ascending thoracic aortic aneurysm measuring 4.3 cm. Fusiform dilatation of the proximal left subc lavian artery measuring up to 2.5 cm. Heavily calcified aortic valve. This may be a bicuspid valve. Echocardiography could further evaluate. No aortic dissection. 2. Other incidental findings as noted above.
[2024-05-24] MEDS: ASPIRIN EC 81 MG TAB PO SCH (08:10)
[2024-05-24] MEDS: ENOXAPARIN 40 MG/0.4 ML SQ SCH (08:10)
[2024-05-24] MEDS: CLOPIDOGREL 75 MG TABLET PO SCH (08:10)
[2024-05-24] MEDS ORDERED: NA CHLORIDE 0.9% 1,000 ML ONE (09:59)
--- NOTE | 2024-05-24 11:40 | P.CNS ---
Date of Consult: 05/24/24 Chief Complaint: Left upper extremity and lower extremity numbness History of Present Illness: Patient with PMH of HTN, HLD, Presented with right upper and lower extremities numbness, denies chest pain, no SOB, no palpitations, no syncope. Allergies No Known Allergies Allergy (Unverified 05/23/24 18:03) Home medications list reviewed: Yes Home Medications: Aspirin Chewable [Aspirin Chewable*] 81 mg PO DAILY 05/24/24 Clopidogrel Bisulfate [Plavix*] 75 mg PO DAILY 05/24/24 - Past Medical/Surgical History -: Left-sided numbness - Social History Smoking Status: Current every day smoker Alcohol use: No CD- Drugs: No Place of Residence: Home Review of Systems 10-point ROS is otherwise unremarkable Physical Examination Temp Pulse Resp BP Pulse Ox 98.3 F 53 14 151/77 H 98 05/24/24 08:00 05/24/24 08:00 05/24/24 08:00 05/24/24 08:00 05/24/24 08:00 General: Alert, In no apparent distress HEENT: Atraumatic, PERRLA, Mucous membr. moist/pink, EOMI, Sclerae nonicteric Neck: Supple, 2+ carotid pulse no bruit, No LAD, Without JVD or thyroid abnormality Respiratory: Clear to auscultation bilaterally, Normal air movement Cardiovascular: Regular rate/rhythm, Normal S1 S2 Gastrointestinal: Normal bowel sounds, No tenderness Musculoskeletal: No tenderness Integumentary: No rashes Neurological: Normal gait, Normal speech, Normal tone, Normal affect Lymphatics: No axilla or inguinal lymphadenopathy Laboratory Data (last 24 hrs) 05/23/24 05/23/24 12:20 12:20 WBC 9.20 Hgb 13.4 L Hct 39.9 Plt Count 193 Sodium 140 Potassium 4.0 BUN 16 Creatinine 1.03 Glucose 106 - Problems (1) Type 2 PR (myocardial infarction) Current Visit: Yes Status: Acute Plan: Patient denies having chest pain, troponin elevation most likely secondary to demand. continue to trend until trending down recommend nuclear stress test in am (Leixscan) get echo ASA 81 mg daily Lipitor 40 mg daily (2) Aortic heart murmur Current Visit: Yes Status: Acute Plan: concern for aortic valve stenosis on exam get echo (3) HTN (hypertension) Current Visit: Yes Status: Acute Plan: continue to monitor.
[2024-05-24 14:58] VITALS: O2SAT 99
[2024-05-25 07:26] LABS: Anion Gap 7.1 mEq/L (5.0-15.0); Magnesium 2.1 mg/dL (1.6-2.4); Potassium 4.1 mEq/L (3.5-5.1)
[2024-05-25] MEDS ORDERED: REGADENOSON 0.4 MG/5 ML SYR IV ONE (08:19)
--- NOTE | 2024-05-25 11:33 | P.PN ---
Date of Service: 05/25/24 Subjective: ROS: 10 point ROS as noted above, otherwise negative Physical Exam: GEN: Alert, NAD HEENT: Normal conjunctiva, sclera anicteric, CV: Regular rate and rhythm, no edema, systolic murmur Pulm: Nonlabored respirations on room air, clear bilaterally ABD: soft, nontender, nondistended Neuro: Normal speech, normal affect, left-sided numbness Problem List: Left Upper extremity and left lower extremity numbness secondary to subacute CVA NSTEMI Abnormal EKG Left subclavian fusiform aneurysm Left Upper extremity and left lower extremity numbness secondary to subacute CVA presents with left upper and lower extremity numbness. Denies any limb weakness, no difficulty ambulating, no speech/swallowing problem Symptoms started ~1 month ago. Initially with entire left sided numbness including face, now improved with residual numbness to left extremities Was seen at clinic in [place] and started on aspirin, plavix. CTA head (05/23): Multifocal mild narrowing along the basilar artery and right more than left MCA branches as above. No significant stenosis or large vessel occlusion CT head (05/23): Left frontal parasagittal and left inferior cerebellar regions of encephalomalacia, may relate to sequelae of remote ischemia. 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 continue Aspirin, Plavix and Lipitor. Echo done; pending official report Dr. Reeder, neuro consulted PT/ST eval denies trouble swallowing. Tolerating regular diet. NSTEMI Abnormal EKG EKG with marked bradycardia with T wave inversion, other nonspecific ST abn ormalities. Repolarization issues suspected. trend troponins, 178 -> 180 Elevated troponins likely secondary to demand ischemia. 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 Fusiform dilatation of the proximal left subclavian artery measuring 2.5 cm. heavily calcified aortic valve. Patient may need vascular surgery evaluation Maintain high systolic BP for cerebral blood flow. Plavix, asa 81 mg VTE: Lovenox Code: Full Dispo: home, ~1-2 days pending stress test, cardiac recs Time Spent Managing Pts Care (In Minutes): 55
[2024-05-25 12:20] VITALS: BP 147/68; TEMP 97.7
--- NOTE | 2024-05-25 12:59 | RAD REPORT ---
EXAM: Nuclear medicine cardiac perfusion examination with ejection fraction HISTORY: Chest pain. N-STEMI TECHNIQUE: Rest images: 9.9 mCi technetium 99m sestamibi Stress images: 31.4 mCi of technetium 99m sestamibi; COMPARISON: None FINDINGS: Tomographic images: No fixed or reversible perfusion defects. Questionable partial defect along the i nferior wall, fixed, appears to be artifactual. Gated images: Normal wall motion and ejection fraction of 50%. EDV: 140 mL ESV: 71mL TID: 1.1 IMPRESSION: No scintigraphic evidence of myocardial ischemia. Left ventricular ejection fraction:50%
--- NOTE | 2024-05-25 14:18 | TREADPHA ---
DX: NSTEMI Date of Study: 05/25/2024 Ht: 5' 5 " Wt: 165 lb 0 oz Consulting Physician: JAKE MEDICATIONS: ASPIRIN, LIPITOR, PLAVIX, LOVENOX HISTORY: 63 YEAR OLD MALE HERE WITH NSTEMI. HISTORY OF HYPERTENSION AND HIGH CHOLESTEROL. PHYSICIAL EXAMINATION: RESTING B.P.: 145/77 RESTING H.R.: 51 RESTING EKG: NORMAL SINUS BRADYCARDIA PROTOCOL: LEXISACN EXERCISE TIME: 3:30 B.P. AT [facility] STRESS: 128/79 IMPRESSION: LEXISCAN INJECTED PER PROTOCOL. CARDIOLITE INJECTED. SEE NUCLEAR MEDICINE REPORT. NO CHEST PAIN. NO VENTRICULAR TACHYCARDIA, SUPRAVENTRICULAR TACHYCARDIA, PREMATURE ATRIAL COMPLEXES OR PREMATURE VENTRICULAR COMPLEXES. NO ARRHYTHMIAS.
--- NOTE | 2024-05-25 14:46 | ECHO ---
HEIGHT: 5 ft 5 in WEIGHT: 165 lb 0 oz DATE OF STUDY: 05/25/[address]: Mayur Dawson MD 2-DIMENSIONAL: YES M.MODE: YES DOPPLER: YES COLOR FLOW: YES TDS: NO PORTABLE: YES DEFINITY: NO BUBBLE STUDY: NO DIAGNOSIS: CEREBRAL VASCULAR ACCIDENT CARDIAC HISTORY: CATHERIZATION: SURGERY: PROSTHETIC VALVE: PACEMAKER: MEASUREMENTS (cm) DIASTOLIC (NORMALS) SYSTOLIC (NORMALS) IVSd 1.5 (0.6-1.2) LA Diam 3.1 (1.9-4.0) LVEF 65% LVIDd 3.6 (3.5-5.7) LVIDs 1.7 (2.0-3.5) %FS 53% LVPWd 2.1 (0.6-1.2) Ao Diam (2.0-3.7) 2 DIMENSIONAL ASSESSMENT: RIGHT ATRIUM: NORMAL LEFT ATRIUM: NORMAL RIGHT VENTRICLE: NORMAL LEFT VENTRICLE: MILD LEFT VENTRICULAR HYPERTROPHY TRICUSPID VALVE: MILD TRICUSPID REGURGITATION MITRAL VALVE: TRACE OF MITRAL REGURGITATION PULMONIC VALVE: NORMAL AORTIC VALVE: SEVERELY CALCIFIED PERICARDIAL EFFUSION: NONE AORTIC ROOT: NORMAL LEFT VENTRICULAR WALL MOTION: NORMAL. DOPPLER/COLOR FLOW: DIASTOLIC DYSFUNCTION. COMMENTS: 1. NORMAL LEFT VENTRICULAR SYSTOLIC FUNCTION, EJECTION FRACTION 65%, NORMAL WALL MOTION. 2. DIASTOLIC DYSFUNCTION. 3. BICUSPID AORTIC VALVE CANNOT BE EXCLUDED, SEVERELY CALCIFIED WITH SEVERE AORTIC STENOSIS (AORTIC VALVE AREA 0.7 CENTIMETERS SQUARED, MEAN GRADIENT 60mmHg). TECHNOLOGIST: KERRY BROWN
--- NOTE | 2024-05-26 06:31 | P.DS ---
Admission Date: 05/24/24 Discharge Date: 05/25/24 Disposition: ROUTINE DISCHARGE Discharge Condition: GOOD Reason for Admission: Left upper extremity and lower extremity numbness Consultations: Neurology - Dr. Reeder Cardiology - Dr. Veloz Brief History of Present Illness: 63yo M, PMH: CVA Patient sent to the emergency department from [place] appointment due to left upper extremity and left lower extremity numbness. Patient states that his symptoms started about 1 month ago and initially had whole left body numbness including his face. Symptoms has improved and now has residual numbness in only the left extremities. He states that he went to a clinic in [place] and was started on aspirin and Plavix. Patient denies any limb weakness, no difficulty with ambulation, no speech problem or swallowing problem. Stroke protocol called in the ED, head CT showed Left frontal parasagittal and left inferior cerebellar regions of encephalomalacia, may relate to sequelae of remote ischemia. EKG showed marked bradycardia and nonspecific ST-T changes. Patient hospitalized for further stroke workup. Hospital Course: Problem List: Left Upper extremity and left lower extremity numbness secondary to subacute CVA NSTEMI Abnormal EKG Left subclavian fusiform aneurysm Physician discharge instructions: Patient presented to Ed with left upper and lower extremity numbness for ~1 month most consistent with chronic residual deficits related to recent subacute infarct. Patient states he was recently seen in a clinic in [place] ~1 month ago and was diagnosed with stroke and given prescriptions for aspirin, plavix. He reports initially dealing with entire left sided numbness including face, now improved with residual numbness to left extremities. CT head noted Left frontal parasagittal and left inferior cerebellar regions of encephalomalacia, may relate to sequelae of remote ischemia. CTA head/neck with findings as noted below. Dr. Reeder, neurology was consulted and recommended continued medical management. No further neuro workup warranted. Troponin's were noted to be mildly elevated this hospitalization but trended flat. Suspect elevated troponins secondary to demand ischemia. EKG with marked bradycardia with T wave inversion, other nonspecific ST abnormalities - suspect secondary to repolarization issues. Cardiology was consulted and recommended stress test to further evaluate which was negative. Echo done, pending official report, but Dr. Veloz stated there was moderate-severe aortic stenosis and recommended close follow up with cardiology for further management and to discuss echo results. In regards to possible sublcavian fusiform aneurysm, CTA neck noted fusiform ane urysmal dilation of the left subclavian artery, possibly with chronic dissection that may relate to the observed vertebral artery occlusion. CTA thorax noted 4.3cm ascending thoracic aortic aneurysm. Fusiform dilatation of the proximal left subclavian artery measuring 2.5 cm, with no dissection noted. heavily calcified aortic valve. No urgent/emergent intervention warranted. Recommend follow up with Intervention Radiology / Vascular. Briefly discussed case with Dr. Salas, who patient can follow up with. Office number is [phone] - to call and make appointment. Total Cholesterol 216 LDL: 156 Medications: aspirin 81mg daily Clopidrogel 75mg daily Atorvastatin 40mg bedtime Follow up: PCP 3-5 days Cardiology 2-4 weeks Neurology 2-[address] Salas in a few weeks please call to schedule / confirm appointments Imaging Reports this hospitalization: CT head (05/23): Left frontal parasagittal and left inferior cerebellar regions of encephalomalacia, may relate to sequelae of remote ischemia. CTA head (05/23): Multifocal mild narrowing along the basilar artery and right more than left MCA branches as above. 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 Fusiform dilatation of the proximal left subclavian artery measuring 2.5 cm. heavily calcified aortic valve. Physical Exam: GEN: Alert, NAD HEENT: Normal conjunctiva, sclera anicteric, CV: Regular rate and rhythm, no edema, systolic murmur Pulm: Nonlabored respirations on room air, clear bilaterally ABD: soft, nontender, nondistended Neuro: Normal speech, normal affect, left-sided numbness Vital Signs/Physical Exam: Temp Pulse Resp BP Pulse Ox 97.7 F 50 14 147/68 H 98 05/25/24 12:00 05/25/24 12:00 05/25/24 12:00 05/25/24 12:00 05/25/24 12:00 Laboratory Data at Discharge: WBC 8.10 thou/uL (4.3-10.9) 05/24/24 04:22 Hgb 12.8 g/dL (13.6-17.9) L 05/24/24 04:22 Hct 39.0 % (39.6-49.0) L 05/24/24 04:22 Plt Count 183 thou/uL (152-406) 05/24/24 04:22 Sodium 143 mEq/L (136-145) 05/25/24 06:15 Potassium 4.1 mEq/L (3.5-5.1) 05/25/24 06:15 BUN 17 mg/dL (7-18) 05/25/24 06:15 Creatinine 1.06 mg/dL (0.70-1.30) 05/25/24 06:15 Glucose 99 mg/dL (74-106) 05/25/24 06:15 Phosphorus 3.4 mg/dL (2.5-4.9) 05/24/24 04:22 Magnesium 2.1 mg/dL (1.6-2.4) 05/25/24 06:15 Triglycerides 147 mg/dL (<150) 05/24/24 04:22 Cholesterol 216 mg/dL (<200) H 05/24/24 04:22 HDL Cholesterol 31 mg/dL (40-60) L 05/24/24 04:22 Cholesterol/HDL Ratio 6.97 05/24/24 04:22 Home Medications: Aspirin Chewable [Aspirin Chewable*] 81 mg PO DAILY 30 Days #30 tab.chew 05/25/24 Atorvastatin Calcium [Lipitor] 40 mg PO BEDTIME 30 Days #30 tab 05/25/24 Clopidogrel Bisulfate [Plavix*] 75 mg PO DAILY 30 Days #30 tab 05/25/24 New Medications: Aspirin Chewable [Aspirin Chewable*] 81 mg PO DAILY 30 Days #30 tab.chew Atorvastatin Calcium [Lipitor] 40 mg PO BEDTIME 30 Days #30 tab Clopidogrel Bisulfate [Plavix*] 75 mg PO DAILY 30 Days #30 tab Physician Discharge Instructions: Physician discharge instructions: Patient presented to Ed with left upper and lower extremity numbness for ~1 month most consistent with chronic residual deficits related to recent subacute infarct. Patient states he was recently seen in a clinic in [place] ~1 month ago and was diagnosed with stroke and given prescriptions for aspirin, plavix. He reports initially dealing with entire left sided numbness including face, now improved with residual numbness to left extremities. CT head noted Left frontal parasagittal and left inferior cerebellar regions of encephalomalacia, may relate to sequelae of remote ischemia. CTA head/neck with findings as noted below. Dr. Reeder, neurology was consulted and recommended continued medical management. No further neuro workup warranted. Troponin's were noted to be mildly elevated this hospitalization but trended flat. Suspect elevated troponins secondary to demand ischemia. EKG with marked bradycardia with T wave inversion, other nonspecific ST abnormalities - suspect secondary to repolarization issues. Cardiology was consulted and recommended stress test to further evaluate which was negative. Echo done, pending official report, but Dr. Veloz stated there was moderate- severe aortic stenosis and recommended close follow up with cardiology for further management and to discuss echo results. In regards to possible sublcavian fusiform aneurysm, CTA neck noted fusiform aneurysmal dilation of the left subclavian artery, possibly with chronic dissection that may relate to the observed vertebral artery occlusion. CTA thorax noted 4.3cm ascending thoracic aortic aneurysm. Fusiform dilatation of the proximal left subclavian artery measuring 2.5 cm, with no dissection noted. heavily calcified aortic valve. No urgent/emergent intervention warranted. Recommend follow up with Intervention Radiology / Vascular. Briefly discussed case with Dr. Salas, who patient can follow up with. Office number is [phone] - to call and make appointment. Total Cholesterol 216 LDL: 156 Medications: aspirin 81mg daily Clopidrogel 75mg daily Atorvastatin 40mg bedtime Follow up: PCP 3-5 days Cardiology 2-4 weeks Neurology 2-[address] Salas in a few weeks please call to schedule / confirm appointments Imaging Reports this hospitalization: CT head (05/23): Left frontal parasagittal and left inferior cerebellar regions of encephalomalacia, may relate to sequelae of remote ischemia. CTA head (05/23): Multifocal mild narrowing along the basilar artery and right more than left MCA branches as above. 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 Fusiform dilatation of the proximal left subclavian artery measuring 2.5 cm. heavily calcified aortic valve. Followup: Morteza Reeder MD [ASSOCIATE-ACTIVE - CAN ADMIT] - Clarence Veloz MD [ACTIVE - CAN ADMIT] - NONE,NONE [Primary Care Provider] - Genny Salas MD [ACTIVE - CAN ADMIT] - Time spent managing pt's care (in minutes): 45
== END 2024-05-25 15:36 | disposition home or self-care (01) | DRG 64 ==
LOC: ER 11:30 → ERHOLD 16:43 → 4TH 05-24 13:02 → OBSVTOIN 05-24 18:00
PROVIDERS: ADMIT Internal Medicine; ATTEND Hospitalist
DX: I63.9 Cerebral infarction, unspecified (principal); I21.A1 Myocardial infarction type 2; I72.8 Aneurysm of other specified arteries; F17.200 Nicotine dependence, unspecified, uncomplicated; R29.810 Facial weakness; R20.0 Anesthesia of skin; Z79.82 Long term (current) use of aspirin; Z79.02 Long term (current) use of antithrombotics/antiplatelets; Z86.73 Personal history of transient ischemic attack (TIA), and cerebral infarction without residual deficits; Z79.899 Other long term (current) drug therapy
CPT/HCPCS: 36415; 70450; 70496; 70498; 71275; 74175; 78452; 80048; 80061; 83735; 84100; 84443; 84484; 85025; 92610; 93017; 93306; 97161; 99285; A9500; G0378; J1650; J2785; J7030; Q9967